=== PATIENT | male | born 1935 | race Caucasian/White ===

== ENCOUNTER 2019-10-26 14:30 | Inpatient (IN) | payer MEDICARE, BC ==
[2019-10-26 15:24] LABS: Hemoglobin 6.3 g/dL (14.0-18.0); Mean Corpuscular HGB CONC 32.9 g/dL (32.0-36.0); Mean Corpuscular Hemoglobin 31.9 pg (27.0-31.0); Mean Corpuscular Volume 96.8 fL (78.0-98.0); Mean Platelet Volume 7.9 fL (7.4-10.4); Platelet Count 187 thou/uL (130-400); RBC Distribution Width 20.2 % (11.5-14.5); Red Blood Cell (RBC) Count 1.98 mill/uL (4.70-6.10); White Blood Cell (WBC) Count 6.3 thou/uL (4.8-10.8)
[2019-10-26 15:41] LABS: ALT (SGPT) 17 U/L (8-55); AST (SGOT) 40 U/L (5-34); Albumin 3.2 g/dL (3.4-4.8); Alkaline Phosphatase 82 U/L (40-110); Anion Gap 11 mmol/L (10-20); BUN (Urea Nitrogen) 17 mg/dL (8.4-25.7); Bilirubin, Total 4.5 mg/dL (0.2-1.2); Calc. Creatinine Clearance 0 mL/min (70-130); Calcium 7.7 mg/dL (7.8-10.44); Carbon Dioxide 24 mmol/L (23-31); Chloride 86 mmol/L (98-107); Estimated GFR-MDRD Greater than 90; Glucose 126 mg/dL (83-110); Iron 42 ug/dL (65-175); Iron Binding Capacity, Total 308 mcg/dL (261-462); Potassium 4.1 mmol/L (3.5-5.1); Protein, Total 6.2 g/dL (5.8-8.1)
[2019-10-26 15:46] LABS: Anisocytosis MODERATE=16-30 cells (100X) (0-5/hpf); Band 2 % (5-11); Hypochromia SLIGHT = 6-15 cells (100X) (0-5/hpf); Lymphocytes 7 % (21-51); MDiff Complete? YES; Monocytes 15 % (0-10); Neutrophil 76 % (42-75); Nucleated RBC 1 % (0); Platelet Morphology Comment Appears Adequate; Polychromasia MODERATE = 3-4 cells (100X) (0-2/hpf); Schistocytes SLIGHT = 2-5 cells (100X) (0-1/hpf); Target Cells SLIGHT = 2-5 cells (100X) (0-1/hpf)
[2019-10-26 15:48] LABS: Sodium 117 mmol/L (136-145)
[2019-10-26 16:59] LABS: Bilirubin Negative (Negative); Blood, Urine Negative (Negative); Clarity Clear (Clear); Glucose, Urine (Dipstick) Normal (Negative); Leukocyte Negative Leu/uL (Negative); Nitrite Negative (Negative); Protein, Urine (Dipstick) Negative (Neg-Trace); Urobilinogen Normal mg/dL (Less than 2)
--- NOTE | 2019-10-26 17:14 | RAD ---
TWO VIEWS RIGHT HIP: 10/26/19 HISTORY: Fall with bruising on the right side. FINDINGS: two views of the right hip shows the patient to be status post right hip arthroplasty without perihar dware lucency or fracture. Diffuse surrounding soft tissue swelling is seen. Phleboliths are seen in the soft tissues. IMPRESSION: Status post right hip arthroplasty without evidence of complication. POS: EAA
--- NOTE | 2019-10-26 17:16 | RAD ---
SINGLE VIEW OF THE PELVIS: 10/26/19 COMPARISON: None. HISTORY: Fall with bruising on the right side. FINDINGS: Single view of the pelvis shows no evidence of acute fracture or dislocation. The patient is status p ost bilateral hip arthroplasty without perihardware lucency. Moderate right sided soft tissue swellin g is seen. Phleboliths are seen in the soft tissues of the right leg. IMPRESSION: No evidence of acute osseous abnormality. POS: EAA
--- NOTE | 2019-10-26 17:18 | RAD ---
SINGLE VIEW OF THE CHEST: 10/26/19 COMPARISON: None. HISTORY: Low hemoglobin. FINDINGS: Single view of the chest shows an enlarged cardiomediastinal silhouette. The patient is status post sternotomy. There is a pacemaker with its lead in the right ventricle. Increased interstitial marking s are present. A calcified pleural plaque is seen in the right inferior thorax. No consolidation is s een. There is a small right pleural effusion. IMPRESSION: Cardiomegaly and small right pleural effusion. POS: EAA
[2019-10-26 17:58] LABS: PTT 62.7 SEC (22.9-36.1)
[2019-10-26 18:01] LABS: INR-International Normal Ratio 4.3
[2019-10-26 18:31] LABS: Anion Gap 10 mmol/L (10-20); BUN (Urea Nitrogen) 16 mg/dL (8.4-25.7); Calc. Creatinine Clearance 0 mL/min (70-130); Calcium 7.8 mg/dL (7.8-10.44); Carbon Dioxide 28 mmol/L (23-31); Chloride 86 mmol/L (98-107); Estimated GFR-MDRD Greater than 90; Glucose 112 mg/dL (83-110); Potassium 4.2 mmol/L (3.5-5.1); Sodium 120 mmol/L (136-145)
[2019-10-26 18:39] LABS: Magnesium 1.8 mg/dL (1.6-2.6); Phosphorus 2.6 mg/dL (2.3-4.7)
--- NOTE | 2019-10-26 18:50 | ULT ---
EXAM: RIGHT LOWER EXTREMITY VENOUS DUPLEX ULTRASOUND INCLUDING COLOR AND SPECTRAL DOPPLER IMAGIN10/26/19 HISTORY: Leg edema. Exam performed from groin to ankle including visualized greater saphenous, common femoral, superficia l femoral, profunda femoral, and popliteal, trifurcation, and posterior tibial vein regions. There is phasic flow at all levels with normal compressibility and normal augmentation. There is a fairly exa ggerated waveform throughout. No intraluminal thrombus. IMPRESSION: No evidence for intraluminal thrombus. Somewhat exaggerated waveform throughout. No evidence for deep venous thrombosis. POS: RRE
[2019-10-26] MEDS ORDERED: Acetaminophen 325 MG TAB PO PRN (20:02)
[2019-10-26] MEDS ORDERED: Senokot S 8.6-50 MG TAB PO PRN (20:02)
[2019-10-26 21:21] VITALS: BMI 22.6
--- NOTE | 2019-10-26 21:43 | HP ---
PRIMARY CARE PHYSICIAN: Unknown. Sees Dr. Cristina for symptomatic anemia, has gotten ferritin/iron infusions in the past, was sent. HISTORY OF PRESENT ILLNESS: Mr. Galloway is a pleasant 84-year-old man, who reported to the emergency room after having blood work drawn at Dr. Cristina's office and was told to come to the emergency room for potential blood transfusion. While he was here, his history from family at the bedside reports that he had a mechanical fall on 10/16/2019. He was taken to [facility] here in [place] and was evaluated. All of the x-rays over there were negative for fracture, but they noted that his hemoglobin was in the low 8s, so they instructed family to keep an eye on it and have it rechecked. He is on Coumadin for history of heart failure per the niece at the bedside and get his blood checked once a month. When his hemoglobin was rechecked this morning, it was 6.1, and so they were instructed to come here at [facility] for transfusion. The patient was started by family on some iron supplements. He noticed that his stool had become much darker with green tint, so guaiac was done this morning and that was also negative. He is significantly bruised primarily still on the scrotum. He has some ecchymosis and has some edema. Niece at bedside whom he lives with says that appeared a day or two after the fall and he is still unable to ambulate well. She reports that at home he is able to get up and transfer with his walker and is able to go from the living room to the bedroom and to the bathroom, but reports that since the fall, he is not ambulating as often. He has been getting tired in the afternoon around 5 o'clock and goes from the TV in the living room to the TV in the bedroom and is not eating as much as he has, but in the last 6 weeks, the niece reports that she is in home due to the coronavirus pandemic and has been cooking for him and he has actually gained some weight. His lab work in the ER was concerning for a sodium at 117 and chloride at 86, which is a new finding for him. He had a normal sodium when he was checked at [facility]. Per records on the niece's phone, hemoglobin here was 6.3, hematocrit is 19.2, and platelet count is 187. He does have a bilirubin of 4.5, albumin 3.2, AST 40, ALT 17, alkaline phosphatase is 82, iron is 308, ferritin is 233, and BNP is 752.6. Urine was unremarkable. He does have an externally rotated right foot, so x-rays were repeated. He had a pelvis x-ray in the right hip and both were without any acute findings. Chest x-ray shows a cardiomegaly with small right pleural effusion. Initially, the ER physician was considering giving the patient transfusion and then sending him out, but then his CompMed came back with a sodium that was significantly lower than it was on the and so he is being admitted for that as well as anemia. REVIEW OF SYSTEMS: The patient reports some lingering pain to the right hip, especially with movement. Ambulation is more difficult. Denies any other pain. Denies any dizziness. Does report some darker than normal stools. Denied any fever, chills, or shortness of breath. Denies any chest pain. Denies any abdominal pain. Denies any nausea, vomiting, diarrhea, or constipation. All systems are reviewed and are negative unless mentioned above or in the HPI. PAST MEDICAL HISTORY: Chronic anemia requiring some iron transfusions, hypertension, and coronary artery disease, has had per the patient two CABGs in the past. He also has a history of congestive heart failure and does have a pacemaker defibrillator in place. PAST SURGICAL HISTORY: Bilateral hip replacement. He has had to have his esophagus dilated multiple times. Family reports that on one of those occasions, he had a small tear that resulted in some bleeding and so they have not done it since then. SOCIAL HISTORY: Lives at home with his family. He denies any alcohol or drug use. No smoking history. ALLERGIES: NONE. CURRENT MEDICATIONS: Atorvastatin 40 mg p.o. once a day, Coreg 3.125 b.i.d., digoxin 125 mcg once a day in the morning, Flonase bilateral nares b.i.d., furosemide 40 mg p.o. once a day, Flomax 0.4 mg daily, warfarin 5 mg six days a week and on Fridays he gets 4 mg, he did not have it today, and Xyzal 5 mg p.o. once a day. PHYSICAL EXAMINATION: VITAL SIGNS: Blood pressure 161/88, pulse is 98, respiratory rate is 18, and temperature is 98.3. The patient is 96% on room air. CONSTITUTIONAL: He is in no apparent distress. He is alert and oriented to person and place. He is not really sure what time it is, but otherwise answers questions appropriately. The patient is hard of hearing. HEENT: Head is atraumatic and normocephalic. Eyes, pupils are equally round and reactive to light. He is icteric. Extraocular muscles are intact. ENT; mouth exam is normal. Mucous membranes are moist. He does have partial dentures. NECK: Normal range of motion. Trachea is midline. RESPIRATORY: Chest movement is symmetrical. Breath sounds are clear. He does have a pacemaker in the left upper chest. CARDIOVASCULAR: Regular rate and rhythm. Has a grade 3/6 systolic heart murmur. ABDOMEN: Nontender. Bowel sounds are heard. BACK: Normal range of motion. EXTREMITIES: Upper extremity, normal range of motion. Radial pulses normal. Lower extremity, normal range of motion. There is a slight shortening and external rotation of the right leg, +2 edema noted on the right leg. NEUROLOGIC: The patient is oriented to person and place. Speech is normal. He has no focal motor or sensory deficits. SKIN: Pale, dry, with a slight yellow tinge. PSYCH: Has a normal affect. He is oriented to person, place, and time. ASSESSMENT AND PLAN: 1. Anemia with a hemoglobin of 6.1. Two units of packed red blood cells have been typed and crossed. He will get both of those in the next 12 hours or so. We will recheck hemoglobin and hematocrit. 2. Hyponatremia. Dr. Boateng from Nephrology has been consulted and actually saw the patient in the ER. Sodium was increased when rechecked without any intervention, so we will continue to watch further orders per Nephrology. 3. Right leg edema with external rotation and slight shortening. The patient has bilateral hip replacements. ER was reluctant to do a CT scan because they were afraid that it would be poor test because of the hardware in the considerable artifact. We will ask PT to consult while he is in-house and also order an MRI of the right hip to make sure that there is something going on that we can pecan picker on an x-ray. 4. On anti-chronic anticoagulant with warfarin and had an INR of 4.3. He did not get it today. We will hold this and recheck it tomorrow. 5. History of hypertension. The patient gets carvedilol at a low dose at 3.125. Niece reports that she has not been giving it to him for the past week because his blood pressure has been on the lower side. He also gets digoxin, which will restart. 6. Protonix started daily for gastrointestinal prophylaxis. The patient is on Coumadin, which we were holding for now. We will hold off on the SCDs until we figure out right hip. 7. Case discussed with Dr. Bunch, who agrees with plan. Also talked to Dr. Boateng. 8. The patient with jaundiced appearing skin with an elevated bilirubin and AST. We will get an ultrasound of right upper quadrant to kind of take a look and make sure that there is no obstructive process that might be causing the bilirubin. He also has some bruising to the scrotum and so we will go ahead and order a testicular ultrasound with Doppler. The patient's niece states that he has had this since the fall, but we will go ahead and take a look at this, especially consideration of his hemoglobin. The patient did have ultrasound of that right leg and there is no evidence of any thrombus. The swelling certainly could be due to the injury of soft tissue that he potentially had on 10/15. 9. Hospital course dependent on clinical findings. Job ID: [id number]
--- NOTE | 2019-10-26 22:52 | ULT ---
ULTRASOUND GALLBLADDER RIGHT UPPER QUADRANT: Date: 10/26/2019 HISTORY: Elevated bilirubin. Jaundice. COMPARISON: Ultrasound from 2016. FINDINGS: Real-time Gudino scale and color evaluation of the right upper quadrant of the abdomen was performed. There is distention of the IVC and hepatic veins. There is a cyst in the superior pole of the right k idney measuring 2.5 cm in size. Mild increased hepatic echotexture. No hepatic mass is appreciated. Common bile duct is normal measur ing 2.0 mm. Portal vein is patent with increased phasicity. Right kidney measures 10.4 x 5.3 x 6.0 cm without mass, hydronephrosis, or abnormal calcifications. Gallbladder is not visualized. IMPRESSION: 1. Nonvisualization of gallbladder. Patient is likely prior cholecystectomy. 2. Nondilatation of the common bile duct. 3. Dilated hepatic veins and IVC with abnormal phasicity of the portal veins suggesting increased ri ght heart pressure. POS: HOME
--- NOTE | 2019-10-26 22:55 | ULT ---
TESTICULAR ULTRASOUND: Date: 10/26/2019 HISTORY: Edema and bruising. Fall. COMPARISON: None. FINDINGS: Real-time Gudino scale with color Doppler and spectral analysis of the testicles performed. The testicular echotexture is very heterogeneous with some foci of hypoechogenicity. This may reflect contusions. No significant hemorrhage within the scrotum. Tunica albuginea intact. IMPRESSION: Heterogeneous appearance of the testicles, which may reflect underlying testicular contusion. A follo w-up testicular ultrasound in 6 weeks is recommended. No testicular rupture. No significant hemorrhag e within the scrotum. POS: HOME
[2019-10-26 23:32] LABS: Anion Gap 13 mmol/L (10-20); BUN (Urea Nitrogen) 15 mg/dL (8.4-25.7); Calc. Creatinine Clearance 76 mL/min (70-130); Calcium 7.8 mg/dL (7.8-10.44); Carbon Dioxide 24 mmol/L (23-31); Chloride 88 mmol/L (98-107); Estimated GFR-MDRD Greater than 90; Glucose 124 mg/dL (83-110); Potassium 4.1 mmol/L (3.5-5.1); Sodium 121 mmol/L (136-145)
[2019-10-27 04:34] LABS: ALT (SGPT) 15 U/L (8-55); AST (SGOT) 37 U/L (5-34); Albumin 3.2 g/dL (3.4-4.8); Alkaline Phosphatase 78 U/L (40-110); Anion Gap 12 mmol/L (10-20); BUN (Urea Nitrogen) 14 mg/dL (8.4-25.7); Bilirubin, Total 5.3 mg/dL (0.2-1.2); Calc. Creatinine Clearance 75 mL/min (70-130); Calcium 7.8 mg/dL (7.8-10.44); Carbon Dioxide 25 mmol/L (23-31); Chloride 87 mmol/L (98-107); Estimated GFR-MDRD Greater than 90; Glucose 136 mg/dL (83-110); Potassium 4.1 mmol/L (3.5-5.1); Protein, Total 6.2 g/dL (5.8-8.1); Sodium 120 mmol/L (136-145)
[2019-10-27 06:01] LABS: #Lymphocytes 0.4 thou/uL (1.20-3.40); #Monocytes 0.8 thou/uL (0.11-0.59); #Neutrophils 4.9 thou/uL (1.40-6.50); %Basophils 0.3 % (0.0-1.0); %Eosinophils 0.4 % (0.0-10.0); %Lymphocytes 6.1 % (21.0-51.0); %Monocytes 13.1 % (0.0-10.0); %Neutrophils 80.1 % (42.0-75.0); Anisocytosis MODERATE=16-30 cells (100X) (0-5/hpf); Hemoglobin 8.6 g/dL (14.0-18.0); MDiff Complete? YES; Mean Corpuscular HGB CONC 31.7 g/dL (32.0-36.0); Mean Corpuscular Hemoglobin 30.4 pg (27.0-31.0); Mean Corpuscular Volume 96.1 fL (78.0-98.0); Mean Platelet Volume 7.7 fL (7.4-10.4); Platelet Count 177 thou/uL (130-400); Polychromasia MODERATE = 3-4 cells (100X) (0-2/hpf); RBC Distribution Width 18.1 % (11.5-14.5); Red Blood Cell (RBC) Count 2.81 mill/uL (4.70-6.10); White Blood Cell (WBC) Count 6.2 thou/uL (4.8-10.8)
--- NOTE | 2019-10-27 06:37 | CON ---
DATE OF CONSULTATION: 10/26/2019 SERVICE: Nephrology. REASON FOR CONSULTATION: Hyponatremia. REQUESTING PHYSICIAN: Dr. Bunch. CHIEF COMPLAINT: Abnormal labs of severe anemia and hyponatremia. HISTORY OF PRESENT ILLNESS: Following history was obtained from review of medical record as well as from talking to patient and niece at bedside. An 84-year-old male with known history of coronary artery disease, congestive heart failure and chronic anemia requiring IV iron infusion, who was [facility] after he was found to have severe anemia of hemoglobin 6.1 as well as low sodium. The patient reportedly had a mechanical fall on October 15, following which he went to the ER at [facility], and he was subsequently discharged. Since then, it is reported that the patient has had poor oral intake and has been having worsening right lower extremity swelling and pain associated with poor ambulation as well as poor oral intake. They however reported that the patient was able to keep fluids mostly water down since then. The patient reportedly is followed up at the [facility] today for management of anemia and was found to have worsened anemia with hemoglobin of 6.1, hence he was referred to the ER for further evaluation. Of note, the niece reported that the patient had sodium of 134 on October 15. Review of medical records showed normal sodium on previous lab of 2015. On evaluation, the patient was found to have supratherapeutic INR as well as hyponatremia with serum sodium of 117 as well as severe anemia of 6.1. He also was found to have hyperbilirubinemia. There was no history of nausea, vomiting, dysuria, hematuria, cough, shortness of breath, or fever. The patient reportedly has been having anemia for a long time and has been getting IV iron infusion. He also reported some gait instability, but denied dizziness. The patient is alert and oriented and there is no history of confusion, focal weakness, or recent change in mental status. PAST MEDICAL HISTORY: 1. Coronary artery disease. 2. Congestive heart failure. 3. Paroxysmal atrial fibrillation. 4. Chronic anticoagulation with Coumadin. 5. Chronic anemia. 6. Hypertension. 7. Arthritis. 8. Esophageal dysphagia/stenosis. PAST SURGICAL HISTORY: 1. CABG. 2. Bilateral hip replacement. 3. Pacemaker/defibrillator placement. 4. Esophageal dilatation. SOCIAL HISTORY: The patient currently lives with niece. He used to live in a shelter, but was brought home due to coronavirus. He has history of remote smoking, but denied alcohol or recreational drug abuse. FAMILY HISTORY: Reviewed, but noncontributory. ALLERGIES: NO KNOWN DRUG ALLERGIES REPORTED. CURRENT HOME MEDICATIONS: As follows; 1. Lipitor 40 mg p.o. daily. 2. Carvedilol 3.125 mg p.o. b.i.d. 3. Digoxin 125 mcg p.o. daily. 4. Flonase to both nares b.i.d. 5. Furosemide 40 mg p.o. daily. 6. Tamsulosin 0.4 mg p.o. daily. 7. Warfarin 5 mg daily. 8. Xyzal 5 mg p.o. daily. REVIEW OF SYSTEMS: A 12-point review of system performed was negative other than pertinent positives and negatives included in the history of present illness. PHYSICAL EXAMINATION: VITAL SIGNS: Temperature 98, pulse 93, respiratory rate 18, SpO2 of 97% on room air, blood pressure is 150/77. GENERAL: Chronically ill-looking elderly male, in some painful distress noted. The patient is afebrile and acyanotic. The patient however has icterus of the skin. HEENT: Normocephalic and atraumatic. Oral mucosa is moist. NECK: Supple with no obvious JVD. CARDIOVASCULAR: Irregular rhythm and rate with normal heart sounds one and two. Systolic murmur noted. RESPIRATORY: Fair air entry bilaterally with no obvious crackle or rhonchi or use of accessory muscles. GI: Full, soft with some tenderness especially in lower abdomen bilaterally. UROGENITAL: Penis and scrotum are grossly normal except ecchymosis of the inguinal and right scrotal area. EXTREMITIES: Right lower extremity is held at lateral rotation at the hip, flexion at the knee with diffuse global edema as well as decreased range of motion. Other extremities are grossly normal without edema. Ecchymoses of the inguinal area as well as lateral aspect of the hip noted. SKIN: Icterus of the skin especially right lower extremity is noted as well as ecchymoses and bruises involving the right proximal thigh. MAILHOUSE OPERATOR: The patient is conscious, alert, oriented x3 with appropriate mental status. Some memory lapses noted. Moves all extremities. No obvious cranial nerve deficit appreciated. LABORATORY DATA: CBC showed WBC count of 6.3, hemoglobin of 6.3, MCV of 96.8, platelet of 187. Coagulation panel showed PT 41, INR 4.3, PTT 2.7. CMP on presentation today at 3:05 p.m. showed sodium 117, potassium 4.1, chloride 86, CO2 of 24, BUN 17, creatinine 0.77, glucose 126, calcium 7.7, total bilirubin 4.5, AST 40, ALT 17, alkaline phosphatase 82 total protein 6.2, albumin 3.2. Iron chemistry showed serum iron of 42, TIBC 308, ferritin 233. Cardiac markers showed CK 59. BNP 752.6. Serum osmolality is 246 while urine osmolality is 262 and urine sodium less than 20. Repeat BMP at 1800 hours showed sodium 120, potassium 4.2, chloride 86, CO2 of 28, BUN 16, creatinine 0.81, glucose 112, and calcium 7.8. Phosphorus is 2.6 and magnesium 1.8. Urinalysis showed yellow clear urine with pH of 7.0 and specific gravity of 1.010, negative protein, normal glucose, negative ketone, blood, nitrite, bilirubin, urobilinogen, and leukocyte esterase. Microscopy was not done. Chest x-ray showed cardiomegaly with small right pleural effusion. Pelvic x-ray showed no acute osseous abnormality. Prior bilateral hip arthroplasty with perihardware lucency noted as well as moderate right-sided soft tissue swelling. Two views of right hip showed status post right hip arthroplasty without evidence of complication. Right lower extremity venous Doppler ultrasound showed no evidence of intraluminal thrombus. ASSESSMENT AND PLAN: 1. Hyponatremia. The patient reportedly had sodium of 134 on October 15 and currently had level of 117, which has improved to 120. Family reported poor oral solute intake as well as mostly free water intake in recent days. Urine osmolality of 262 in the presence of plasma hypo-osmolality is consistent with ADH secretion. The patient with poor solute intake and associated volume contraction and low urine sodium is suggestive appropriate ADH secretion. Co-existing inappropriate ADH secretion cannot be ruled out given hyperbilirubinemia suggestive liver pathology and history of CHF. Levels have already increased from 117 on presentation to 120 with no obvious intervention other than blood transfusion and fluid restriction. There is no overt evidence of neurological change 2. Generalized weakness. 3. Severe anemia, most likely due to iron deficiency. 4. Right lower extremity bruise/swelling. DVT has been ruled out. Fracture is a concern. 5. Atrial fibrillation. 6. Supratherapeutic INR. 7. Coronary artery disease, status post coronary artery bypass grafting. 8. Hyperbilirubinemia of unclear etiology 9. Physical deconditioning. PLAN: 1. Agree with blood transfusion. 2. Start fluid restriction. Nor crystalloid for now 3. We will monitor electrolytes serially. 4. Solute intake will be liberalized. 5. Evaluation of hyperbilirubinemia is recommended. 6. Further treatment to follow depending on hospital course. Many thanks for involving us in the care of this patient. We will follow along with you. Job ID: [id number] [facility]LLIS HOSPITALFrancesca
[2019-10-27] MEDS ORDERED: Furosemide 40 MG/4 ML VIAL SLOW IVP SCH (10:15)
[2019-10-27] MEDS ORDERED: Digoxin 0.125 MG TAB PO SCH (10:30)
--- NOTE | 2019-10-27 10:46 | PRG ---
DATE OF SERVICE: 10/27/2019 SERVICE: Nephrology. SUBJECTIVE: An 84-year-old male with CHF; valvular heart disease, status post valve replacement; and atrial fibrillation, on anticoagulation, admitted due to abnormal lab of hyponatremia and severe anemia. Nephrology is seeing the patient for hyponatremia. The patient reports feeling better today. Got blood transfusion overnight. Still complaining of right lower extremity swelling and discomfort as well as decreased range of motion. OBJECTIVE: VITAL SIGNS: Temperature 97.7, pulse 111, respiratory rate 18, SpO2 of 94% on room air, blood pressure is 173/94. GENERAL: Chronically ill-looking elderly male, in some painful distress. Afebrile, acyanotic. HEENT: Normocephalic and atraumatic. Oral mucosa is dry. CARDIOVASCULAR: Irregular rhythm and rate. Systolic murmur with closing snap noted. RESPIRATORY: Fair air entry bilaterally with bibasilar crackles. No rhonchi or use of accessory muscles appreciated. GI: Full, soft, and nondistended with some lower abdominal mild tenderness. Bowel sound is normoactive. EXTREMITIES: Right lower extremity edema as well as ecchymosis proximally noted. Firmly, it is held in mild lateral rotation and flexion at the knee. GANG WORKER: Conscious and alert, oriented x3 with appropriate mental status. Some dysarthria and memory lapses noted. DIAGNOSTIC DATA: CBC showed WBC count of 6.2, hemoglobin of 8.6, platelet of 177. CMP today showed sodium 120, potassium 4.1, chloride 87, CO2 of 25, BUN 14, creatinine 0.78, glucose 136, calcium 7.8, total bilirubin 5.3, AST 37, ALT 15, alkaline phosphatase 78, total protein 6.2, albumin 3.2. Abdominal ultrasound performed yesterday showed distention of the IVC and hepatic veins as well as mildly increased hepatic echotexture. No hepatic mass was noted, and common bile duct is normal measuring 2.0 mm. ASSESSMENT: 1. Hyponatremia: Acute or [id number]. The patient had sodium of 134 on October 16, 2019. This seems to be multifactorial from appropriate ADH due to volume contraction superimposed on inappropriate ADH secretion related to congestive heart failure and liver pathology. Sodium went up to 121 before trending down to 120 this morning. There is no neurological deficit. 2. Hypertension: Control is suboptimal. 3. Tachyarrhythmia: The patient has history of atrial fibrillation. 4. Chronic congestive heart failure with distended inferior vena cava and hepatic veins. 5. 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 6. Hyperbilirubinemia. 7. Coagulopathy due to liver pathology and Coumadin therapy. 8. Status post valve replacement. 9. Right lower extremity deformity/trauma. 10. Protein-calorie malnutrition. PLAN: 1. We will continue fluid restriction. 2. We will start oral nutritional supplementation. 3. We will also give a dose of Lasix given hepatic congestion as well as features of CHF. 4. We will monitor electrolytes and address appropriately making sure that sodium does not climb up inappropriately. 5. Further evaluation and treatment as per primary attending. Job ID: [id number]
--- NOTE | 2019-10-27 14:56 | PDOC.HOSPP ---
- Subjective Encounter Date: 10/27/19 Encounter Time: 08:00 Subjective: The patient denies dizziness, lightheadedness. He states he came in due to feeling weak recently. No cough, shortness of breath or chest pain. He is anxious to go home. He is oriented to the month, year and place Patient denies testicular pain - Objective Vital Signs & Weight: Vital Signs (12 hours) Temp Pulse Pulse Pulse Resp BP BP 10/27/19 12:00 98.1 F 111 H 18 10/27/19 10:56 111 H 10/27/19 10:55 113 H 105 H 141/96 H 181/99 H 10/27/19 07:11 97.7 F 111 H 18 10/27/19 04:00 98.4 F 103 H 23 H BP Pulse Ox 10/27/19 12:00 141/96 H 96 10/27/19 10:56 10/27/19 10:55 10/27/19 07:11 173/94 H 94 L 10/27/19 04:00 167/93 H 94 L Weight Admit Weight 167 lb Weight 167 lb 6.4 oz I&O: 10/26/19 10/27/19 10/28/19 06:59 06:59 06:59 Intake Total 470 Balance 470 Result Diagrams: 10/27/19 03:24 10/27/19 03:24 Hospitalist ROS - Review of Systems Constitutional: denies: fever, chills - Medication Medications: Active Medications Generic Name Dose Route Start Last Admin Trade Name Freq PRN Reason Stop Dose Admin Pantoprazole Sodium 40 mg 10/27/19 09:00 10/27/19 08:21 Protonix PO 40 mg DAILY SHANNON Administration - Exam General Appearance: NAD, awake alert Eye: PERRL, anicteric sclera ENT: normocephalic atraumatic, no oropharyngeal lesions ENT - other findings: patient with no upper teeth Neck: supple, symmetric, no JVD, no thyromegaly Heart: RRR, no murmur, no gallops, no rubs Respiratory: CTAB, no wheezes, no rales, no ronchi Gastrointestinal: soft, non-tender, non-distended Extremities: no cyanosis, no clubbing Extremities - other findings: 1+ pitting edema bilaterally. Mild righ thip tenderness Skin: normal turgor Neurological: cranial nerve grossly intact, normal sensation to touch, no focal deficits, no new deficit Hosp A/P - Plan This is an 84 year old male who presented with symptomatic anemia and weakness Symptomatic anemia - Hb 6 on presentation. S/p 2 units of pRBC with improvement to 8 - iron panel shows high ferritin level. Will check B12/folate Hyponatremia - sodium is around 120. He did have a chest X ray which showed some cardiomegaly and abd US showing dilated IVC - lasix 40 mg IV was given once by nephrology - serum osmolarity 246, urine osmolarity 262 with urine sodium less than 20 - will repeat BMP this afternoon #S/p fall #Right hip tenderness - Physical therapy has been consulted - MRI right hip has been ordered due to #Supratherapeutic INR #Afib on anticoagulation - INR was 4 yesterday. Coumadin was held, will recheck INR today - continue digoxin and coreg Transaminitis - ASt improved, but bilirubin slightly increased. He was given lasix this morning - will recheck to see if this has improved DVt prophylaxis: holding due to supratherapeutic INR Code status: full code
[2019-10-27] MEDS ORDERED: Nitroglycerin 0.4 MG TAB (25 Tab Bottle) SL PRN (15:03)
[2019-10-27 15:29] LABS: Anion Gap 12 mmol/L (10-20); BUN (Urea Nitrogen) 15 mg/dL (8.4-25.7); Calc. Creatinine Clearance 74 mL/min (70-130); Carbon Dioxide 28 mmol/L (23-31); Chloride 89 mmol/L (98-107); Estimated GFR-MDRD Greater than 90; Glucose 124 mg/dL (83-110); Potassium 3.8 mmol/L (3.5-5.1); Sodium 125 mmol/L (136-145)
[2019-10-27 16:16] LABS: INR-International Normal Ratio 3.7; Prothrombin Time 36.4 sec (12.0-14.7)
[2019-10-27 16:32] LABS: ALT (SGPT) 17 U/L (8-55); AST (SGOT) 36 U/L (5-34); Albumin 3.3 g/dL (3.4-4.8); Alkaline Phosphatase 83 U/L (40-110); Bilirubin, Direct 1.2 mg/dL (0.1-0.3); Bilirubin, Total 5.2 mg/dL (0.2-1.2); Protein, Total 6.3 g/dL (5.8-8.1)
[2019-10-27] MEDS: Carvedilol 3.125 MG TAB PO SCH (20:14)
[2019-10-28 04:34] LABS: Hemoglobin 8.3 g/dL (14.0-18.0); Mean Corpuscular HGB CONC 31.7 g/dL (32.0-36.0); Mean Corpuscular Volume 97.8 fL (78.0-98.0); Mean Platelet Volume 8.6 fL (7.4-10.4); Platelet Count 174 thou/uL (130-400); RBC Distribution Width 18.8 % (11.5-14.5); Red Blood Cell (RBC) Count 2.69 mill/uL (4.70-6.10); White Blood Cell (WBC) Count 5.9 thou/uL (4.8-10.8)
[2019-10-28 04:39] LABS: INR-International Normal Ratio 3.5; Prothrombin Time 34.9 sec (12.0-14.7)
[2019-10-28 04:56] LABS: ALT (SGPT) 16 U/L (8-55); AST (SGOT) 47 U/L (5-34); Albumin 3.1 g/dL (3.4-4.8); Alkaline Phosphatase 73 U/L (40-110); Anion Gap 12 mmol/L (10-20); BUN (Urea Nitrogen) 15 mg/dL (8.4-25.7); Bilirubin, Total 5.3 mg/dL (0.2-1.2); Calc. Creatinine Clearance 75 mL/min (70-130); Calcium 7.7 mg/dL (7.8-10.44); Carbon Dioxide 25 mmol/L (23-31); Chloride 91 mmol/L (98-107); Estimated GFR-MDRD Greater than 90; Globulin 3.1 g/dL (2.4-3.5); Glucose 110 mg/dL (83-110); Potassium 4.2 mmol/L (3.5-5.1); Protein, Total 6.2 g/dL (5.8-8.1); Sodium 124 mmol/L (136-145)
[2019-10-28] MEDS: Atorvastatin Calcium 40 MG TAB PO SCH (08:55)
[2019-10-28] MEDS: Digoxin 0.125 MG TAB PO SCH (08:55)
[2019-10-28] MEDS: Folic Acid 1 MG TAB PO SCH (08:55)
[2019-10-28] MEDS: Multivitamin W/ Minerals 1 TAB PO SCH (08:55)
[2019-10-28] MEDS: Loratadine 10 MG TAB PO SCH (08:56)
[2019-10-28] MEDS: Tamsulosin HCl 0.4 MG CAP PO SCH (08:56)
[2019-10-28] MEDS: Carvedilol 3.125 MG TAB PO SCH ×2 (08:56→20:43)
[2019-10-28] MEDS ORDERED: Furosemide 40 MG/4 ML VIAL SLOW IVP SCH (09:30)
--- NOTE | 2019-10-28 10:08 | RAD ---
Chest one view HISTORY: Congestion. Pleural effusion. COMPARISON: 10/26/2019. FINDINGS: Cardiac silhouette is magnified and enlarged. Left cardiac margin now partially obscured by increasing parenchymal opacity in the lingula of the left upper lobe. Patchy ill-defined parenchymal opacity throughout the remainder of each lung has also increased sligh tly. Blunting of each costophrenic angle is unchanged. Mediastinum is midline with aortic calcification, postoperative changes, and a left subclavian defibr illator. No evidence of pneumothorax. IMPRESSION : Slight interval progression of patchy ill-defined areas of bilateral infiltrate. Small amount of pleu ral fluid is favored to be stable. Atherosclerosis.
--- NOTE | 2019-10-28 12:35 | CT ---
CT ABDOMEN AND PELVIS WITHOUT IV CONTRAST: HISTORY: Injury from fall. Abdominal bruising. Right hip pain. Evaluate for hematoma. FINDINGS: There is a small right pleural effusion. Scattered linear and interstitial increased markings in the lungs, nonspecific, possibly chronic. Enlargement of the heart, including the left atrium. Prominent three-vessel coronary artery calcific disease. ICD in place. The liver shows no acute process. Status post cholecystectomy. There is some air within the common duct and intrahepatic ducts, evidence for pneumobilia. The visualized pancreas, spleen and adrenal glands are unremarkable. No renal calculus o r acute obstruction. Evidence for bilateral renal cysts. Atherosclerosis with some prominent aorti c calcification and mild focal ectasia, measuring 3.3 cm in size. 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 There is some fairly prominent right-sided subcutaneous and lateral abdominal wall thickening and fat stranding, which certainly could be related to trauma and soft tissue contusion. M inimal nonhemorrhagic free intraperitoneal fluid in the right and left gutters. Bilateral total hip r eplacement changes with extensive artifact. Urinary bladder appears unremarkable. 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 There is a mild, less than 50% vertical height loss compression fracture/burst fracture of L1 wi th very mild retropulsion, age indeterminate. IMPRESSION: 1. Small right pleural effusion. 2. Cardiomegaly, including some left atrial enlargement. 3. 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 4. Status post cholecystectomy with pneumobilia. 5. Subcutaneous and chest wall swelling and edematous changes involving the right lateral lower chest and abdominal wall from the lower rib cage down to the level of the left iliac crest, which certainl y could be related to soft tissue contusion from recent trauma. 6. Small amount of [id number]-rgzndbyau intraperitoneal fluid within the abdomen, primarily the colonic gutter regions. 7. Other findings as above. POS: [facility]
--- NOTE | 2019-10-28 15:53 | PDOC.HOSPP ---
- Subjective Encounter Date: 10/28/19 Encounter Time: 10:00 Subjective: The patient reports no significant complaints. Some mild right hip pain from when he fell. He does have extensive bruising on his abdomen and hip Patient refused PT today - Objective Vital Signs & Weight: Vital Signs (12 hours) Temp Pulse Resp BP Pulse Ox 10/28/19 12:00 97.9 F 80 16 136/95 H 97 10/28/19 08:55 75 10/28/19 08:00 97.6 F 75 17 135/83 96 10/28/19 03:53 97.6 F 108 H 18 139/76 92 L Weight Admit Weight 167 lb Weight 160 lb 3.2 oz I&O: 10/27/19 10/28/19 10/29/19 06:59 06:59 06:59 Intake Total 470 840 Output Total 200 Balance 470 640 Result Diagrams: 10/28/19 04:19 10/28/19 04:19 Hospitalist ROS - Review of Systems Constitutional: denies: fever, chills - Medication Medications: Active Medications Generic Name Dose Route Start Last Admin Trade Name Freq PRN Reason Stop Dose Admin Atorvastatin Calcium 40 mg 10/28/19 09:00 10/28/19 08:55 Lipitor PO 40 mg DAILY SHANNON Administration Carvedilol 3.125 mg 10/27/19 21:00 10/28/19 08:56 Coreg PO 3.125 mg BID SHANNON Administration Digoxin 0.125 mg 10/28/19 09:00 10/28/19 08:55 Lanoxin PO 0.125 mg DAILY SHANNON Administration Folic Acid 1 mg 10/28/19 09:00 10/28/19 08:55 Folvite PO 1 mg DAILY SHANNON Administration Iron/Minerals/Multivitamins 1 tab 10/28/19 09:00 10/28/19 08:55 Theragran M PO 1 tab DAILY SHANNON Administration Loratadine 10 mg 10/28/19 09:00 10/28/19 08:56 Claritin PO 10 mg DAILY SHANNON Administration Pantoprazole Sodium 40 mg 10/27/19 09:00 10/28/19 08:55 Protonix PO 40 mg DAILY SHANNON Administration Tamsulosin HCl 0.4 mg 10/28/19 09:00 10/28/19 08:56 Flomax PO 0.4 mg DAILY SHANNON Administration - Exam General Appearance: NAD, awake alert Eye: PERRL, anicteric sclera ENT: normocephalic atraumatic, no oropharyngeal lesions Neck: supple, no JVD Heart: RRR, no gallops, no rubs Heart - other findings: systolic murmur left second intercostal space Respiratory: CTAB, no wheezes Gastrointestinal: soft, non-tender, non-distended, normal bowel sounds Extremities: no cyanosis, no clubbing Extremities - other findings: improved edema in lower extremities Skin - other findings: bruising noted on right hip and side of abdomen Neurological: cranial nerve grossly intact, normal sensation to touch, no focal deficits, no new deficit Hosp A/P - Plan Chest Xray: progression of bilateral infiltrate. Atherosclerosis CT abdomen: contusion noted on the right hip. Subcutaneous and chest wall swelling and edematous changes involving right lateral lower chest an dabdominal wall from rib cage to level of left iliac crest. Intraperitoneal fluid within the abdomen This is an 84 year old male who presented with symptomatic anemia and weakness Symptomatic anemia - Hb 6 on presentation. S/p 2 units of pRBC with improvement to 8 - iron panel shows high ferritin level. B12 and folate were normal Hyponatremia - improving - sodium improved to 124. Chest X ray shows bilateral infiltrate. CT abdomen shows some edema - was given additional 40 mg IV lasix today 20 - nephrology is following #S/p fall #Right hip tenderness - Physical therapy has been consulted. No fracture or hematoma noted on CT scan - MRI right hip cancelled due to patient's pacemaker #Supratherapeutic INR #Afib on anticoagulation - INR was 4 yesterday. Coumadin was held, INR 3.5 today, continue to hold and recheck tomorrow - continue digoxin and coreg Transaminitis - stable, possibly from congestion Dispo: pending PT evaluation, improvement in sodium DVt prophylaxis: holding due to supratherapeutic INR Code status: full code
[2019-10-29 07:38] LABS: INR-International Normal Ratio 2.5
[2019-10-29 08:00] LABS: Albumin 3.1 g/dL (3.4-4.8); Anion Gap 10 mmol/L (10-20); BUN (Urea Nitrogen) 18 mg/dL (8.4-25.7); BUN/Creatinine Ratio 19.78; Calc. Creatinine Clearance 62 mL/min (70-130); Calcium 8.4 mg/dL (7.8-10.44); Carbon Dioxide 31 mmol/L (23-31); Chloride 91 mmol/L (98-107); Estimated GFR-MDRD 79; Glucose 146 mg/dL (83-110); Magnesium 1.7 mg/dL (1.6-2.6); Phosphorus 3.3 mg/dL (2.3-4.7); Potassium 3.9 mmol/L (3.5-5.1); Sodium 128 mmol/L (136-145)
[2019-10-29] MEDS: Multivitamin W/ Minerals 1 TAB PO SCH (08:43)
[2019-10-29] MEDS: Folic Acid 1 MG TAB PO SCH (08:43)
[2019-10-29] MEDS: Carvedilol 3.125 MG TAB PO SCH ×2 (08:43→20:00)
[2019-10-29] MEDS: Loratadine 10 MG TAB PO SCH (08:43)
[2019-10-29] MEDS: Atorvastatin Calcium 40 MG TAB PO SCH (08:43)
[2019-10-29] MEDS: Digoxin 0.125 MG TAB PO SCH (08:43)
[2019-10-29] MEDS: Tamsulosin HCl 0.4 MG CAP PO SCH (08:43)
[2019-10-29] MEDS ORDERED: Furosemide 40 MG TAB PO SCH ×2 (10:04→10:15)
--- NOTE | 2019-10-29 14:07 | PRG ---
DATE OF SERVICE: 10/28/2019 SERVICE: Nephrology. SUBJECTIVE: An 84-year-old male admitted due to abnormal labs of severe anemia. Nephrology is seeing the patient for moderately severe hyponatremia. The patient reportedly has had poor oral intake as well as increased free water intake. He also has history of CHF. In the last 24 hours, oral intake has improved, and the patient reported improvement in right leg pain. Denied nausea or vomiting. OBJECTIVE: VITAL SIGNS: Temperature 97.6, pulse 75, respiratory rate 17, SpO2 of 96% on room air, blood pressure is 135/83. Intake and output in the last 24 hours showed total intake of 840 and total output of 20. Note that these I and O are inconclusive and unreliable. Of note, however, weight dropped from 167 on October 26, to 160 today. GENERAL: Elderly male, in no obvious distress. Afebrile. Anicteric. Acyanotic. HEENT: Normocephalic and atraumatic. Oral mucosa is moist. CARDIOVASCULAR: Irregular rhythm and rate with normal heart sounds 1 and 2. Systolic murmur with closing snap noted. RESPIRATORY: Fair air entry bilaterally with some transmitted breath sounds. No rhonchi or use of accessory muscles appreciated. GI: Full, soft, nontender, and nondistended with normal bowel sounds. EXTREMITIES: Trace edema of left lower extremity as well as severe edema of right lower extremity noted. Ecchymoses bruises of the proximal right thigh noted. 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 Cranial nerves 2 through 12 are grossly intact. The patient has some dysarthria, which is related to edentulous status. DIAGNOSTIC DATA: CBC showed WBC count of 5.9, hemoglobin of 8.3, platelets of 174. PT 34.9, INR 3.5. Chemistry showed sodium 124, potassium 4.2, chloride 91, CO2 of 25, BUN 15, creatinine 0.79, calcium 7.7, glucose 110, total bilirubin 5.3, AST 47, ALT 16, alkaline phosphatase 73, albumin 3.1, total protein 6.2. ASSESSMENT: 1. Hyponatremia: Seems to be due to appropriate and inappropriate ADH secretion related to volume contraction, poor solute intake, increased free water intake, congestive heart failure exacerbation, and congestive hepatopathy. Sodium level is trending up with free water restriction, increased solute intake, and diuretic therapy. Sodium currently is 124. 2. Congestive heart failure exacerbation. 3. Congestive hepatopathy. 4. Right lower extremity trauma bruise and swelling. 5. Atrial fibrillation. 6. Chronic anticoagulation with Coumadin. 7. Status post valve replacement. PLAN: 1. We will continue fluid restriction. 2. We will also give additional dose of Lasix 40 mg IV today. 3. We will get echocardiogram to assess cardiac function given dilated and distended IVC ultrasound of the abdomen. Further treatment and evaluation as per primary attending. The plan was discussed with the patient and niece at the bedside, and all questions were answered. Job ID: [id number]
--- NOTE | 2019-10-29 15:25 | PRG ---
DATE OF SERVICE: 10/29/2019 SERVICE: Nephrology. SUBJECTIVE: An 84-year-old male seen in followup for hyponatremia. The patient was admitted due to generalized weakness and anemia as well as right lower extremity bruise and edema. Reports feeling better. Oral intake is improving. The patient is working with physical therapy. OBJECTIVE: VITAL SIGNS: Temperature 98.1, pulse 88, respiratory rate 17, SpO2 of 92% on room air, and blood pressure is 139/65. Intake and output in the last 24 hours, the patient reportedly took in 1080 mL of fluid with total output of 550 mL, though this is inconclusive as patient had BiPAP several times. GENERAL: Elderly male, in no obvious distress. Afebrile. Anicteric. Acyanotic. HEENT: Normocephalic and atraumatic. Oral mucosa is moist. CARDIOVASCULAR: Irregular rhythm and rate with normal heart sounds 1 and 2. Systolic murmur noted . RESPIRATORY: Fair air entry bilaterally with some transmitted breath sounds. No obvious crackle or rhonchi or use of accessory muscles appreciated. GI: Full, soft, nontender, nondistended with normal bowel sounds. EXTREMITIES: Trace right [id number] right lower extremity edema as well as trace to mild left lower extremity edema noted. Proximal right thigh ecchymosis noted. 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 Some dysarthria noted. DIAGNOSTIC DATA: Renal function panel showed sodium 128, potassium 3.9, chloride 91, CO2 of 31, BUN 18, creatinine 0.91, glucose 146, calcium 8.4, phosphorus 3.3, and magnesium 1.7. Albumin 3.1. ASSESSMENT: 1. Hyponatremia: Due to appropriate and inappropriate ADH secretion related to poor solute intake, decreased effective intravascular volume due to congestive heart failure, excessive free water intake as well as liver pathology. The patient has features of congestive heart failure exacerbation. Sodium is creeping up with diuretic therapy. 2. Hypertension. 3. Acute on chronic heart failure. 4. Volume overload as evidenced by IVC dilatation, lower extremity edema: Due to congestive heart failure, improving with diuretics. 5. Congestive hepatopathy. 6. Hyperbilirubinemia. PLAN: 1. We will continue diuretic therapy with Lasix. We will however change to oral. 2. Recheck BMP in the morning. 3. Other treatment as per primary attending. 4. Continue fluid restriction. Job ID: [id number]
--- NOTE | 2019-10-29 17:23 | PDOC.HOSPP ---
- Subjective Encounter Date: 10/29/19 Encounter Time: 10:00 Subjective: The patient is doing better. NO significant hip pain. He is ambulating. No SOB or cough I spoke with daughter who is interested in patient getting rehab - Objective Vital Signs & Weight: Vital Signs (12 hours) Temp Pulse Pulse Pulse Resp BP BP 10/29/19 16:00 98.0 F 82 18 10/29/19 12:20 83 84 143/66 H 148/68 H 10/29/19 12:00 97.5 F L 79 16 10/29/19 08:43 88 10/29/19 08:00 10/29/19 07:43 98.1 F 88 17 BP Pulse Ox 10/29/19 16:00 163/71 H 98 10/29/19 12:20 10/29/19 12:00 124/60 95 10/29/19 08:43 10/29/19 08:00 92 L 10/29/19 07:43 139/65 92 L Weight Admit Weight 167 lb Weight 158 lb 11.2 oz I&O: 10/28/19 10/29/19 10/30/19 06:59 06:59 06:59 Intake Total 840 1080 Output Total 200 550 Balance 640 530 Result Diagrams: 10/28/19 04:19 10/29/19 07:20 Hospitalist ROS - Review of Systems Constitutional: denies: fever, chills - Medication Medications: Active Medications Generic Name Dose Route Start Last Admin Trade Name Freq PRN Reason Stop Dose Admin Atorvastatin Calcium 40 mg 10/28/19 09:00 10/29/19 08:43 Lipitor PO 40 mg DAILY SHANNON Administration Carvedilol 3.125 mg 10/27/19 21:00 10/29/19 08:43 Coreg PO 3.125 mg BID SHANNON Administration Digoxin 0.125 mg 10/28/19 09:00 10/29/19 08:43 Lanoxin PO 0.125 mg DAILY SHANNON Administration Folic Acid 1 mg 10/28/19 09:00 10/29/19 08:43 Folvite PO 1 mg DAILY SHANNON Administration Iron/Minerals/Multivitamins 1 tab 10/28/19 09:00 10/29/19 08:43 Theragran M PO 1 tab DAILY SHANNON Administration Loratadine 10 mg 10/28/19 09:00 10/29/19 08:43 Claritin PO 10 mg DAILY SHANNON Administration Pantoprazole Sodium 40 mg 10/27/19 09:00 10/29/19 08:43 Protonix PO 40 mg DAILY SHANNON Administration Sodium Chloride 10 ml 10/26/19 20:02 10/28/19 20:43 Flush - Normal Saline IVF 10 ml PRN PRN Administration Saline Flush Tamsulosin HCl 0.4 mg 10/28/19 09:00 10/29/19 08:43 Flomax PO 0.4 mg DAILY SHANNON Administration - Exam General Appearance: NAD, awake alert Eye: PERRL, anicteric sclera ENT: normocephalic atraumatic, no oropharyngeal lesions Neck: no JVD Heart: RRR, no murmur, no gallops, no rubs Respiratory: CTAB, no wheezes, no rales, no ronchi Gastrointestinal: soft, non-tender, non-distended, normal bowel sounds Extremities: no cyanosis, no clubbing, no edema Skin - other findings: bruising of skin. Some jaundice noted Neurological: cranial nerve grossly intact, normal sensation to touch, no focal deficits, no new deficit Musculoskeletal: normal tone, normal strength, no muscle wasting Psychiatric: normal affect, normal behavior, A&O x 3, oriented to person Hosp A/P - Plan Chest Xray: progression of bilateral infiltrate. Atherosclerosis CT abdomen: contusion noted on the right hip. Subcutaneous and chest wall swelling and edematous changes involving right lateral lower chest an dabdominal wall from rib cage to level of left iliac crest. Intraperitoneal fluid within the abdomen ECHO: EF 55-50%, severe tricuspid regurgitation and moderate MR This is an 84 year old male who presented with symptomatic anemia and weakness Hyponatremia - improving - sodium improved to 128. Chest X ray shows bilateral infiltrate. CT abdomen shows some edema -switch to oral lasix today - continue fluid restriction Symptomatic anemia - Hb 6 on presentation. S/p 2 units of pRBC with improvement to 8 - iron panel shows high ferritin level. B12 and folate were normal #S/p fall #Right hip tenderness - Physical therapy has been consulted. No fracture or hematoma noted on CT scan. They are recommending rehab - case management consulted for rehab #Supratherapeutic INR- resolved #Afib on anticoagulation -INR down to 2.5, will resume coumadin today #Severe tricuspid regurgitation #Moderate MR #Mechanical aortic valve -outpatient follow up Transaminitis - stable, repeat LFT tomorrow Dispo: case management consulted for rehab DVt prophylaxis:resume coumadin 2.5 Code status: full code
[2019-10-29] MEDS: Warfarin Sodium 2.5 MG TAB PO SCH (17:38)
[2019-10-30 04:51] LABS: INR-International Normal Ratio 2.2; Prothrombin Time 24.6 sec (12.0-14.7)
[2019-10-30 05:04] LABS: Hemoglobin 8.4 g/dL (14.0-18.0); Mean Corpuscular HGB CONC 29.8 g/dL (32.0-36.0); Mean Corpuscular Hemoglobin 30.1 pg (27.0-31.0); Platelet Count 171 thou/uL (130-400); RBC Distribution Width 19.2 % (11.5-14.5); White Blood Cell (WBC) Count 5.1 thou/uL (4.8-10.8)
[2019-10-30 05:07] LABS: Anion Gap 8 mmol/L (10-20); BUN (Urea Nitrogen) 23 mg/dL (8.4-25.7); Calc. Creatinine Clearance 61 mL/min (70-130); Carbon Dioxide 36 mmol/L (23-31); Chloride 92 mmol/L (98-107); Estimated GFR-MDRD 78; Potassium 3.8 mmol/L (3.5-5.1); Sodium 132 mmol/L (136-145)
[2019-10-30 05:08] LABS: ALT (SGPT) 13 U/L (8-55); AST (SGOT) 27 U/L (5-34); Albumin 3.1 g/dL (3.4-4.8); Alkaline Phosphatase 77 U/L (40-110); Bilirubin, Total 4.5 mg/dL (0.2-1.2); Calcium 8.3 mg/dL (7.8-10.44); Globulin 2.9 g/dL (2.4-3.5); Glucose 123 mg/dL (83-110)
[2019-10-30 09:11] LABS: Hemoglobin 8.7 g/dL (14.0-18.0); Platelet Count 166 thou/uL (130-400)
[2019-10-30] MEDS: Atorvastatin Calcium 40 MG TAB PO SCH (09:19)
[2019-10-30] MEDS: Carvedilol 3.125 MG TAB PO SCH ×2 (09:19→19:38)
[2019-10-30] MEDS: Digoxin 0.125 MG TAB PO SCH (09:19)
[2019-10-30] MEDS: Furosemide 40 MG TAB PO SCH (09:19)
[2019-10-30] MEDS: Loratadine 10 MG TAB PO SCH (09:19)
[2019-10-30] MEDS: Tamsulosin HCl 0.4 MG CAP PO SCH (09:19)
[2019-10-30] MEDS: Multivitamin W/ Minerals 1 TAB PO SCH (09:19)
[2019-10-30] MEDS: Folic Acid 1 MG TAB PO SCH (09:20)
--- NOTE | 2019-10-30 10:03 | PRG ---
DATE OF SERVICE: 10/30/2019 SERVICE: Nephrology. SUBJECTIVE: An 84-year-old male seen in followup for hyponatremia. The patient was admitted due to generalized weakness and poor oral intake. Clinically improved and ambulating with walker. Oral intake has improved. No new problem. Denied nausea, vomiting, or abdominal pain. OBJECTIVE: VITAL SIGNS: Temperature 96.7, pulse 98, respiratory rate 20, SpO2 of 98% on room air, blood pressure is 128/68. GENERAL: Elderly male, in no obvious distress. Afebrile. Acyanotic. HEENT: Normocephalic, atraumatic. Oral mucosa is moist. NECK: Supple with no JVD. CARDIOVASCULAR: Irregular rhythm and rate with normal heart sounds 1 and 2. Systolic murmur noted. RESPIRATORY: Fair air entry bilaterally with no obvious rhonchi or use of accessory muscles. GI: Full, soft, nontender, nondistended with normal bowel sounds. EXTREMITIES: [id number] bilateral leg edema, especially right lower extremity. No erythema appreciated. SKIN: Resolving ecchymosis involving the lateral lower extremity extending from thigh to distal legs. 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 Some memory lapses noted. DIAGNOSTIC DATA: CBC showed hemoglobin of 8.7, hematocrit of 28.6 and platelets of 166. Chemistry showed sodium 132, potassium 3.8, chloride 92, CO2 of 36, BUN 23, creatinine 0.92, glucose 123, calcium 8.3, total bilirubin 4.5, AST 27, ALT 13, alkaline phosphatase 77, total protein 6.0, albumin 3.1, globulin 2.9. ASSESSMENT: 1. Hyponatremia: Due to congestive heart failure exacerbation as well as congestive hepatopathy. Plasma sodium has gone up from 117 on admission to 132 today with diuretic therapy. The patient also had poor solute intake, which has improved. 2. Hypertension: Control has improved with escalation of diuretic therapy. 3. Metabolic alkalosis: Due to diuretic therapy. 4. Congestive hepatopathy: Due to congestive heart failure and severe tricuspid regurgitation. 5. Protein-calorie malnutrition. 6. Right lower extremity swelling and bruising due to trauma/fall. PLAN: 1. Continue current dose of diuretics. Nutritional rehabilitation to continue as well as physical rehabilitation. 2. Monitor electrolytes and correct as indicated. 3. Recheck electrolytes tomorrow. 4. The patient can be discharged from Nephrology point of view once given that sodium is trending up in the right direction with current therapy. Call for any clarification. Job ID: [id number]
--- NOTE | 2019-10-30 12:35 | PDOC.HOSPP ---
- Subjective Encounter Date: 10/30/19 Encounter Time: 12:34 Subjective: The patient has no complaints. No hip pain, sob or chest pain. Currently pending placement - Objective Vital Signs & Weight: Vital Signs (12 hours) Temp Pulse Resp BP Pulse Ox 10/30/19 12:00 98.2 F 68 20 128/58 L 95 10/30/19 09:19 85 10/30/19 08:00 96.7 F L 98 20 128/68 98 10/30/19 02:56 97.5 F L 75 16 145/65 H 94 L Weight Admit Weight 167 lb Weight 157 lb 9.6 oz I&O: 10/29/19 10/30/19 10/31/19 06:59 06:59 06:59 Intake Total 1080 150 Output Total 550 550 Balance 530 -400 Result Diagrams: 10/30/19 08:52 10/30/19 04:04 Hospitalist ROS - Review of Systems Constitutional: denies: fever, chills - Medication Medications: Active Medications Generic Name Dose Route Start Last Admin Trade Name Freq PRN Reason Stop Dose Admin Atorvastatin Calcium 40 mg 10/28/19 09:00 10/30/19 09:19 Lipitor PO 40 mg DAILY SHANNON Administration Carvedilol 3.125 mg 10/27/19 21:00 10/30/19 09:19 Coreg PO 3.125 mg BID SHANNON Administration Digoxin 0.125 mg 10/28/19 09:00 10/30/19 09:19 Lanoxin PO 0.125 mg DAILY SHANNON Administration Folic Acid 1 mg 10/28/19 09:00 10/30/19 09:20 Folvite PO 1 mg DAILY SHANNON Administration Furosemide 40 mg 10/30/19 09:00 10/30/19 09:19 Lasix PO 40 mg DAILY SHANNON Administration Iron/Minerals/Multivitamins 1 tab 10/28/19 09:00 10/30/19 09:19 Theragran M PO 1 tab DAILY SHANNON Administration Loratadine 10 mg 10/28/19 09:00 10/30/19 09:19 Claritin PO 10 mg DAILY SHANNON Administration Pantoprazole Sodium 40 mg 10/27/19 09:00 10/30/19 09:19 Protonix PO 40 mg DAILY SHANNON Administration Sodium Chloride 10 ml 10/26/19 20:02 10/28/19 20:43 Flush - Normal Saline IVF 10 ml PRN PRN Administration Saline Flush Tamsulosin HCl 0.4 mg 10/28/19 09:00 10/30/19 09:19 Flomax PO 0.4 mg DAILY SHANNON Administration Warfarin Sodium 2.5 mg 10/29/19 17:00 10/29/19 17:38 Coumadin PO 2.5 mg 1700 SHANNON Administration - Exam General Appearance: NAD, awake alert Eye: PERRL, anicteric sclera ENT: normocephalic atraumatic, no oropharyngeal lesions ENT - other findings: patient with no upper teeth Neck: no JVD Heart: RRR, no gallops, no rubs Heart - other findings: systolic murmur left second intercostal space Respiratory: CTAB, no wheezes, no rales, no ronchi Gastrointestinal: soft, non-tender, non-distended, normal bowel sounds Extremities: no cyanosis, no clubbing, no edema Skin: normal turgor, no lesions, no rashes Neurological: cranial nerve grossly intact, normal sensation to touch Musculoskeletal: normal tone, normal strength, no muscle wasting Psychiatric: normal affect, normal behavior, A&O x 3 Hosp A/P - Plan Chest Xray: progression of bilateral infiltrate. Atherosclerosis CT abdomen: contusion noted on the right hip. Subcutaneous and chest wall swelling and edematous changes involving right lateral lower chest an dabdominal wall from rib cage to level of left iliac crest. Intraperitoneal fluid within the abdomen ECHO: EF 55-50%, severe tricuspid regurgitation and moderate MR This is an 84 year old male who presented with symptomatic anemia and weakness Hyponatremia - improving - sodium improved to 132. Chest X ray shows bilateral infiltrate. CT abdomen shows some edema -continue oral lasix - continue fluid restriction Symptomatic anemia - Hb 6 on presentation. S/p 2 units of pRBC with improvement to 8. Hb today 8.7 - iron panel shows high ferritin level. B12 and folate were normal #S/p fall #Right hip tenderness - Physical therapy has been consulted. No fracture or hematoma noted on CT scan. They are recommending rehab - case management consulted for rehab #Supratherapeutic INR- resolved #Afib on anticoagulation -INR down to 2, will continue coumadin 2.5 mg . Will recheck INR tomorrow and if still low, will increase coumadin dose #Severe tricuspid regurgitation #Moderate MR #Mechanical aortic valve -outpatient follow up. Aortic valve not adequately assessed on this ECHO. Patient's daughter will speak to safety lamp keeper about what his prior aortic pathology is Transaminitis - dowtrending Dispo: case management consulted for rehab DVt prophylaxis:resume coumadin 2.5 Code status: full code
[2019-10-30] MEDS ORDERED: Warfarin Sodium 2.5 MG TAB PO SCH (17:00)
[2019-10-30] MEDS: Warfarin Sodium 2.5 MG TAB PO SCH (17:47)
[2019-10-31 04:48] LABS: Hemoglobin 8.8 g/dL (14.0-18.0); Mean Corpuscular HGB CONC 30.9 g/dL (32.0-36.0); Mean Corpuscular Hemoglobin 31.2 pg (27.0-31.0); Platelet Count 159 thou/uL (130-400); RBC Distribution Width 18.8 % (11.5-14.5); Red Blood Cell (RBC) Count 2.83 mill/uL (4.70-6.10); White Blood Cell (WBC) Count 5.3 thou/uL (4.8-10.8)
[2019-10-31 04:56] LABS: Prothrombin Time 22.5 sec (12.0-14.7)
[2019-10-31 05:10] LABS: Anion Gap 10 mmol/L (10-20); BUN (Urea Nitrogen) 29 mg/dL (8.4-25.7); Calc. Creatinine Clearance 54 mL/min (70-130); Calcium 8.5 mg/dL (7.8-10.44); Carbon Dioxide 35 mmol/L (23-31); Chloride 94 mmol/L (98-107); Estimated GFR-MDRD 69; Glucose 132 mg/dL (83-110); Potassium 3.8 mmol/L (3.5-5.1); Sodium 135 mmol/L (136-145)
[2019-10-31 05:13] LABS: ALT (SGPT) 13 U/L (8-55); AST (SGOT) 28 U/L (5-34); Albumin 3.2 g/dL (3.4-4.8); Alkaline Phosphatase 77 U/L (40-110); Bilirubin, Direct 1.2 mg/dL (0.1-0.3); Bilirubin, Total 4.8 mg/dL (0.2-1.2); Protein, Total 6.2 g/dL (5.8-8.1)
--- NOTE | 2019-10-31 08:20 | RAD ---
EXAM: CHEST ONE VIEW HISTORY: Follow-up pleural effusions. COMPARISON: 10/28/2019 FINDINGS: Postoperative changes related to median sternotomy and cardiac valve replacement are again seen. Left subclavian single lead AICD device remains in place. Cardiac silhouette remains enlarged. Blunting of each lateral costophrenic angle is present suggesting small bilateral pleural effusions. Calcified pleural-based plaques are again seen bilaterally. Calcifications overlie the midlung zones bilaterally which may be related to prior granulomatous disease. Mild increased interstitial densitie s are seen in the region of the lingula which may be related to atelectasis versus pneumonitis. Vascular calcifications are seen in the thoracic aorta. Surgical clips overlie the right neck. IMPRESSION: 1. Small bilateral pleural effusions. 2. Cardiomegaly. 3. Increased interstitial densities in the region of the lingula which may be related to atelectasis versus pneumonitis. Follow-up to resolution is recommended. 4. Calcified pleural-based plaques.
[2019-10-31] MEDS: Folic Acid 1 MG TAB PO SCH (08:36)
[2019-10-31] MEDS: Atorvastatin Calcium 40 MG TAB PO SCH (08:36)
[2019-10-31] MEDS: Digoxin 0.125 MG TAB PO SCH (08:37)
[2019-10-31] MEDS: Multivitamin W/ Minerals 1 TAB PO SCH (08:37)
[2019-10-31] MEDS: Tamsulosin HCl 0.4 MG CAP PO SCH (08:37)
[2019-10-31] MEDS: Carvedilol 3.125 MG TAB PO SCH (08:38)
[2019-10-31] MEDS: Furosemide 40 MG TAB PO SCH (08:38)
[2019-10-31] MEDS: Loratadine 10 MG TAB PO SCH (08:38)
--- NOTE | 2019-10-31 11:08 | PQF ---
MADI ESQUIVEL OBILEYDA [id number] [facility]-295 [id number] CLINICAL DOCUMENTATION IMPROVEMENT CLARIFICATION FORM: ICD-10 Updated PLEASE DO AN ADDENDUM TO THE PROGRESS NOTE WITH ANY DOCUMENTATION UPDATES OR ADDITIONS AND CARRY THROUGH TO DC SUMMARY. THANK YOU. Date: 10/31/2019 , 11/02/2019 ATTN: DR. MONTESINOS Please exercise your independent, professional judgment in responding to the clarification form. Clinical indicators are provided on the bottom of this form for your review. Please check appropriate box(s): [ ] Protein Calorie Malnutrition: [ ] Mild [ ] Moderate [ ] Severe [ ] Underweight without malnutrition [ ] Other diagnosis [ ] Unable to determine In addition, please specify: Present on Admission (POA): [ ] Yes [ ] No [ ] Unable to determine CLINICAL INDICATORS - SIGNS / SYMPTOMS / LABS / RESULTS AND LOCATION IN MR 10/25 CONSULT (OBI) IT IS REPORTED THAT THE PATIENT HAS HAD POOR ORAL INTAKE AND HAS BEEN HAVING WORSENING RIGHT LOWER EXTREMITY PAIN ASSOCIATED WITH POOR AMBULATION WELL POOR ORAL INTAKE. 10/26 PN (OBI) ASSESSMENT: 10). PROTEIN CALORIE MALNUTRITION RISK: ADVANCED AGE (84) , HYPONATREMIA, SEVERE ANEMIA( OBI/PN) 10/26 NO UPPER TEETH ( MARIAM/PN) 10/26 TREATMENT: DIETARY CONSULT ( 10/26) RECOMMENDED ENSURE ENLIVE TID Moderate Malnutrition (in acute illness) Energy Intake: <75% of estimated energy requirement for > 7 days Weight Loss: 1-2%/1 week; 5%/ 1 month; 7.5%/3 months Other: mild body fat loss; mild muscle mass loss; mild fluid accumulation; Severe Malnutrition (in acute illness) Energy Intake: < 50% of estimated energy requirement for > 5 days Weight Loss: >1-2%/1 week; >5%/1 month; >7.5%/3 months Other: moderate body fat loss; moderate muscle mass loss; moderate- severe fluid accumulation; 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 VITO (This form is maintained as a part of the permanent medical record) 2014 [employer]. All Rights Reserved [email or web address]
--- NOTE | 2019-10-31 11:17 | PRG ---
DATE OF SERVICE: 10/31/2019 SERVICE: Nephrology. SUBJECTIVE: An 84-year-old male being followed up for hyponatremia. The patient was admitted due to abnormal labs of hyponatremia and anemia. The patient reportedly had a fall several days associated with poor oral intake, worsening weakness. Reports feeling better. Oral intake has improved. OBJECTIVE: VITAL SIGNS: Temperature 97.7, pulse 93, respiratory rate 18, SpO2 of 95% on room air, blood pressure is 127/68. I and O in the last 24 hours showed total intake of 700 and output of 800: It, however, seems inconclusive/incomplete. GENERAL: Elderly male, in no obvious distress. Afebrile, acyanotic. HEENT: Normocephalic, atraumatic. Oral mucosa is moist. CARDIOVASCULAR: Regular rhythm and rate. Normal heart sounds 1 and 2. Systolic murmur noted. RESPIRATORY: Fair air entry bilaterally with some transmitted breath sounds. No obvious rhonchi or use of accessory muscles appreciated. GI: Full, soft, nontender, nondistended with normal bowel sounds. EXTREMITIES: Mild bilateral leg edema noted. SKIN: Ecchymosis with some resolution on the lateral aspect of thigh and leg on the right side noted. ASSISTANT CORPORATE CONTROLLER: Conscious, alert, and oriented x3 with appropriate mental status. DIAGNOSTIC DATA: CBC showed WBC count of 5.3, hemoglobin of 8.8, platelet of 159. Coagulation panel showed PT 22.55, INR 2.0. Chemistry showed sodium 135, potassium 3.8, chloride 94, CO2 of 35, BUN 29, creatinine 1.0, glucose 132, total bilirubin 4.8, AST 28, ALT 13, alkaline phosphatase 77, direct bilirubin 1.2, total protein 6.2, albumin 3.2. ASSESSMENT: 1. Hyponatremia: Due to poor solute intake as well as ADH secretion due to CHF exacerbation. Sodium has improved from 117 on admission to 135 with diuretic therapy and fluid restriction. 2. Hypertension, controlled. 3. Volume overload/bilateral leg edema: Due to CHF exacerbation, improved. 4. Hyperbilirubinemia: Due to congestive hepatopathy with possible contribution from hematoma with hemolysis. PLAN/DISPOSITION: The patient can be discharged from Nephrology point of view. We recommend continuation of current dose of diuretics 40 mg daily as well as fluid and salt restrictions. The patient needs to follow up with repeat labs at the PCP's office. We will sign off at this time. Job ID: [id number]
[2019-10-31 11:38] VITALS: BP 144/67; TEMP 97.8
--- NOTE | 2019-11-01 11:50 | DIS ---
DATE OF ADMISSION: 10/26/2019 DATE OF DISCHARGE: 10/31/2019 DISCHARGE DIAGNOSES: 1. Symptomatic anemia. 2. Hyponatremia. 3. Status post fall with right hip bruising. 4. Supratherapeutic INR. 5. Severe tricuspid regurgitation. 6. Transaminitis. 7. Possible testicular contusion. BRIEF HISTORY OF PRESENT ILLNESS: This is an 84-year-old male with a past medical history of mechanical aortic valve who had presented to the emergency room after having blood work drawn at Dr. Cristina's office who told the patient that his hemoglobin was 6.1. The patient reported dark stools. He also had had a mechanical fall. He reported increasing fatigue while ambulating and has been unable to ambulate well. He was also found to have a sodium of 117 in the ER and was admitted for further workup. HOSPITAL COURSE: Acute symptomatic anemia: The patient had a hemoglobin of 6.3 on presentation. He was transfused 2 units of blood. His repeat hemoglobin came up to 8.6. His hemoglobin remained stable at the time of discharge. His iron panel was checked, which showed normal ferritin of 233. His vitamin B12 was 687 and his folate was 17. He was discharged and should follow up with Dr. Cristina. Hyponatremia: The patient presented with a sodium of 117. He was started on a fluid restriction due to a urine osmolality of 262. His sodium improved to 120. His sodiums were trended on a daily basis. . ECHO showed a dilated IVC and given significant peripheral edema , he was diuresed with IV Lasix and his sodium improved to 135 at the time of discharge. Therefore, it was thought that his hyponatremia was most likely secondary to hypervolemia. He was discharged on his home dose of Lasix 20 mg given that the fact that the patient was drinking excessive amounts of water prior to admission. Nephrology was following and he should follow up with Dr. Boateng in a week and have a repeat BMP. Status post fall/right hip tenderness: The patient was noted to have ecchymosis along his hip extending to upper part of his back. A CT scan of his abdomen and pelvis showed no hematoma. He was seen by Physical Therapy who recommended rehab. However, the family refused and preferred outpatient discharge with home health. Supratherapeutic INR: The patient presented with an INR of 4.3. His INR remained supratherapeutic until 10/28 when it was 2.5. He was resumed on 2.5 mg of Coumadin. However, his INR on 10/30 remained low at 2. Therefore, at discharge, he was advised to resume his home dose of 5 mg and get his INR checked on the and for further adjustments. Mechanical aortic valve/moderate MR/severe TR: ECHO 10/27 showed moderate MR, severe TR with an EF of 50% to 55%. The patient was discharged with Lasix and advised to follow a 2 L fluid restriction. He will follow up with his gas fitter helper, Dr. Garcia, next week. Transaminitis: The patient presented with an AST of 40, ALT of 17. His liver function tests normalized after diuresis with IV Lasix. DISCHARGE PHYSICAL EXAMINATION: VITAL SIGNS: Temp 97.8, HR 68, RR 19, O2 saturation 98% on room air, blood pressure 144/67. GENERAL: The patient is alert, awake, and oriented x3. CVS: Regular rate and rhythm with no murmurs, rubs, or gallops. LUNGS: Clear to auscultation bilaterally. ABDOMEN: Positive bowel sounds, soft. He has mild bruising on the right flank. No significant tenderness. EXTREMITIES: The patient has 2+ pitting edema. He has mild right hip tenderness. PERTINENT LABORATORY DATA: 1. CBC on 10/30: White count 5.3, hemoglobin 8.8, hematocrit 28.8, platelet count 159. 2. BMP on 10/29: Sodium is 132, chloride 92, CO2 36, potassium 2.8, creatinine 0.92. 3. LFTs on 10/29: AST 27, ALT 13, alkaline phosphatase 77. 4. UA on 10/25: Normal. 5. Urine sodium: Less than 20. 6. Urine osmolality: 262. 7. Serum osmolality: 246. IMAGING STUDIES: 1. Chest x-ray on 10/25: Cardiomegaly and small right pleural effusion. 2. Pelvis x-ray on 10/25: Shows no acute osseous abnormality. 3. Hip x-ray on 10/25: Status post right hip arthroplasty without evidence of complication. 4. Vascular ultrasound on 10/25: No evidence for intraluminal thrombosis. No evidence for DVT. 5. Abdominal ultrasound on 10/25: Nonvisualization of the gallbladder. Nondilation of the common bile duct. Dilated hepatic veins and IVC with increased right heart pressure. 6. Testicular ultrasound on 10/25: Heterogeneous appearance of the testicles. Followup testicular ultrasound in 6 weeks is recommended. 7. Chest x-ray on 10/27: Slight interval progression of patchy ill-defined areas of bilateral infiltrate. 8. CT abdomen and pelvis 10/27: Shows cardiomegaly. Small right pleural effusion. Subcutaneous and chest wall swelling and edematous changes involving the right lateral lower chest and abdominal wall from the lower rib cage down to the level of the left iliac crest. Small amount of nonhemorrhagic-appearing intraperitoneal fluid within the abdomen. 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 9. Chest x-ray on 10/30: Shows small bilateral pleural effusions. Cardiomegaly. Increased interstitial densities in the region of the lingula, which may be related to atelectasis versus pneumonitis. Calcified pleural-based plaques. 10. Echo on 10/27: EF 50% to 55%. Moderate MR. Severe TR. DISCHARGE CONDITION: Stable. ACTIVITY: As tolerated. DISPOSITION: Home with home health. DIET: A 2 L fluid restriction with heart healthy diet. DISCHARGE MEDICATIONS: The patient's home medications were resumed. 1. Tylenol 650 mg q6 hours p.o. p.r.n. 2. Atorvastatin 40 mg p.o. daily. 3. Coreg 3.125 mg p.o. b.i.d. 4. Digoxin 0.125 mg p.o. daily. 5. Iron sulfate 65 mg p.o. daily. 6. Flonase 2 sprays in each nares daily. 7. Folic acid 1 mg p.o. daily. 8. Furosemide 20 mg p.o. daily. 9. Levocetirizine 5 mg p.o. daily. 10. Lactobacillus 1 capsule p.o. daily. 11. Magnesium 250 mg p.o. b.i.d. 12. Multivitamin for the eyes. 13. Nitroglycerin 0.4 mg sublingual p.r.n. 14. Flomax 0.4 mg p.o. daily. 15. Coumadin 5 mg p.o. daily. DISCHARGE INSTRUCTIONS: The patient should follow up with his PCP in a week and his gas fitter helper in a week. Consider repeat CBC in a week. He should have his INR checked for the next 2 days. Consider followup testicular ultrasound in 6 weeks. Job ID: [id number] MTDD
--- NOTE | 2019-11-02 07:06 | PQF ---
SAP Inserter Crystal Reports Winform Viewer MADI ESQUIVEL OBI, CHIZOBA Joey [id number] [facility]295 [id number] CLINICAL DOCUMENTATION CLARIFICATION FORM: POST DISCHARGE Addendum to original discharge summary date: ____ Late entry note date: __ DATE: 11/02/19 ATTN:Nelda Boateng Please exercise your independent, professional judgment in responding to the clarification form. Clinical indicators are provided on the bottom of this form for your review Can you please further clarify the type of CHF exacerbation? Please check appropriate box(s): HEART FAILURE: [ ] acute on chronic systolic CHF exacerbation [ ] acute on chronic diastolic CHF exacerbation [ ] acute on chronic systolic and diastolic CHF exacerbation [ ] Other diagnosis [ ] Unable to determine In addition, please specify: Present on Admission (POA): [ ] Yes [ ] No [ ] Unable to determine For continuity of documentation, please document condition throughout progress notes and discharge summary. Thank You. CLINICAL INDICATORS - SIGNS / SYMPTOMS / LABS H and P pg.3- right leg edema Consult pg.1 10/25 Dr. Boateng- worsening right lower extremity swelling and pain Consult pg.3 10/25 Dr. Boateng-CHF PN 10/28 pg.1- The patient has features of CHF exacerbation PN 10/30 pg.1- Fluid overload/bilateral leg edema due to CHF exacerbation improved Echocardiogram- LVEF estimated at 50-55% Laboratory- BNP 752.6H Chest Xray 10/27 small amount of pleural fluid RISKS: HTN- H and P pg.3 Anemia- H and P pg.3 Hyponatremia- H and P pg.3 CAD- Consult pg.1 Malnutrition PB pg.1 AFIB- PN pg.1 84 years old male ED Notes 10/25 TREATMENTS: Lasix 20mg Oral - AUG Echocardiogram 10/27 Chest X ray 10/25 I and O monitoring Digoxin 0.125mg Oral MAR 10/26 Carvedilol 3.125mg Oral AUG 08 (This form is maintained as a part of the permanent medical record) 2014 [employer]. All Rights Reserved [email or web address]
--- NOTE | 2019-11-02 07:11 | PQF ---
MADI ESQUIVEL OBI, CHIZOBA Joey [id number] [facility]-295 [id number] CLINICAL DOCUMENTATION CLARIFICATION FORM: POST DISCHARGE Addendum to original discharge summary date: ____ Late entry note date: __ DATE: 10/23/19 ATTN: Nelda Boateng Please exercise your independent, professional judgment in responding to the clarification form. Clinical indicators are provided on the bottom of this form for your review Can you please further clarify if SIADH is ruled in or ruled out? SIADH [ ] Ruled in diagnosis [ ] Continue to treat [ ] Resolved [ ] Ruled out diagnosis [ ] Cannot rule out diagnosis [ ] Other diagnosis [ ] Unable to determine In addition, please specify: Present on Admission (POA): [ ] Yes [ ] No [ ] Unable to determine For continuity of documentation, please document condition throughout progress notes and discharge summary. Thank You. CLINICAL INDICATORS - SIGNS / SYMPTOMS / LABS Consult pg.1 10/25 Dr. Boateng-hyponatremia with serum sodium of 117 PN pg.1 10/30- Consult pg.1 10/25 Dr. Real- Hyponatremia due to poor solute intake as well as ADH secretion due to CHF exacerbation PN 10/28 Dr. Boateng pg.1- Hyponatremia due to appropriate and inappropriate ADH secretion related to poor solute intake Laboratory- Sodium 117L, 120L, 121L, 120L, 125L, 124<, 128L, 132L, 135L HP 10/25 right leg edema RISK FACTORS HTN- H and P pg.3 Anemia- H and P pg.3 CHF exacerbation PN pg.1 CAD- Consult pg.1 Malnutrition- PN pg.1 84 years old male ED Notes 10/25 Use of Lasix HP 10/25 TREATMENTS NSS 1L MAR Sodium Monitoring- Laboratory Nephrology Consult Dr. Boateng Fluid restriction - Consult pg.1 I and O monitoring- Consult pg.1 (This form is maintained as a part of the permanent medical record) 2014 [employer] All Rights Reserved [email or web address]
== END 2019-10-31 15:05 | disposition home or self-care (01) | DRG 812 ==
LOC: ERS 14:30 → ERHOLD 17:05 → 2NO 20:55
PROVIDERS: ADMIT Internal Medicine; ATTEND Internal Medicine
PROC: 30233N1 Transfusion of Nonautologous Red Blood Cells into Peripheral Vein, Percutaneous Approach (ICD-10-PCS; principal; 2019-10-26)
DX: D50.9 Iron deficiency anemia, unspecified (principal); E46 Unspecified protein-calorie malnutrition; E87.3 Alkalosis; E87.1 Hypo-osmolality and hyponatremia; I25.10 Atherosclerotic heart disease of native coronary artery without angina pectoris; I11.0 Hypertensive heart disease with heart failure; I50.9 Heart failure, unspecified; I48.0 Paroxysmal atrial fibrillation; M19.90 Unspecified osteoarthritis, unspecified site; R13.19 Other dysphagia; E80.6 Other disorders of bilirubin metabolism; I08.1 Rheumatic disorders of both mitral and tricuspid valves; Z96.643 Presence of artificial hip joint, bilateral; Z95.810 Presence of automatic (implantable) cardiac defibrillator; Z79.899 Other long term (current) drug therapy; Z79.02 Long term (current) use of antithrombotics/antiplatelets; Z95.1 Presence of aortocoronary bypass graft
CPT/HCPCS: 36415; 36430; 71045; 72170; 74176; 76705; 76870; 80048; 80053; 80069; 80076; 81003; 82533; 82550; 82607; 82668; 82728; 82746; 83540; 83550; 83735; 83880; 83930; 83935; 84100; 84300; 85025; 85027; 85610; 85730; 86850; 86900; 86901; 93306; 93976; J1940; P9016

== ENCOUNTER 2020-01-28 12:43 | Emergency (ER) | payer MEDICARE, BC | END 2020-01-28 14:23 | disposition home or self-care (01) | LOC: ERS 12:43 | DX: R09.02 Hypoxemia (principal); D64.9 Anemia, unspecified; I11.0 Hypertensive heart disease with heart failure; I50.9 Heart failure, unspecified | CPT/HCPCS: 94760 ==